=== PATIENT | male | born 1960 | race Asian ===

== ENCOUNTER 2020-09-18 23:37 | Inpatient (IN) | payer MEDICAID ==
[~2020-09-18] VITALS: Ht 181.6 cm; Wt 80.3 kg
[~2020-09-18 23:37] MED LIST: ACET-2247 PO; ALBU1.252 NEB; AMLO-258 PO; AUD NEB; PANT-31 PO; PRED-409 PO; PRED10 PO; PRED20 PO; QUET25TA PO
[2020-09-19 01:29] LABS: CALCIUM, TOTAL 9.1 mg/dL (8.8-10.5); CREATININE 1.4 mg/dL (0.60-1.30); POTASSIUM 4.3 mmol/L (3.5-5.1)
[2020-09-19 01:30] LABS: BASOPHILS % (AUTO) 1.4 % (0.0-2.0); EOSINOPHILS % (AUTO) 2.6 % (1.0-6.0); HEMATOCRIT 45.9 % (41-53); HEMOGLOBIN 14.7 g/dL (13.5-17.5); LYMPHOCYTES # (AUTO) 1.7 K/uL (1.0-4.8); LYMPHOCYTES % (AUTO) 19.2 % (22.0-44.0); MEAN CORPUSCULAR HEMOGLOBIN 27.1 pg (26.0-34.0); MEAN CORPUSCULAR VOLUME 85 fL (80-100); MONOCYTES # (AUTO) 0.8 K/uL (0.1-1.0); MONOCYTES % (AUTO) 8.8 % (2.0-9.0); NEUTROPHILS # (AUTO) 5.9 K/uL (1.8-7.7); PLATELET COUNT (AUTO) 202 K/uL (150-450); RED BLOOD CELL COUNT(AUTO) 5.42 MIL/uL (4.50-5.90); RED CELL DISTRIBUTION WIDTH 16.3 % (11.5-14.5)
[2020-09-19 01:35] LABS: INR 1.2 (0.9-1.1); PROTHROMBIN TIME 12.2 SEC (9.4-11.6)
[2020-09-19 01:41] LABS: APPEARANCE,URINE CLEAR (CLEAR); BILIRUBIN,URINE NEGATIVE (NEGATIVE); GLUCOSE, URINE (UA) NEGATIVE (NEGATIVE); KETONES,URINE NEGATIVE (NEGATIVE); LEUKOCYTE ESTERASE ,URINE TRACE (NEGATIVE); NITRATE,URINE NEGATIVE (NEGATIVE); OCCULT BLOOD,URINE LARGE (NEGATIVE); PH,URINE 5.5 (5.0-8.0); PROTEIN,URINE SEE CONFIRM (NEGATIVE)
[2020-09-19 01:54] LABS: ALBUMIN 3.7 g/dL (3.4-5.0); BILIRUBIN,TOTAL 0.9 mg/dL (0.1-1.0); TOTAL PROTEIN, SERUM 8.2 g/dL (6.4-8.2)
[2020-09-19 01:58] LABS: BACTERIA,URINE Few /HPF (None Seen); SULFOSALICYLIC ACID,URINE 3+ (Negative)
[2020-09-19 01:59] LABS: MUCUS,URINE Few LPF (None Seen)
[2020-09-19 02:30] LABS: COVID AG,FIA SOURCE NASOPHARYNGEAL
[2020-09-19] MEDS ORDERED: NITROGLYCERIN 2% (1 GM=INCH) PACKET TP ONE (03:15)
[2020-09-19] MEDS ORDERED: FUROSEMIDE 40 MG/4 ML VIAL IVP ONE (03:15)
[2020-09-19 04:54] LABS: D-DIMER 1.83 mg/L FEU (0.00-0.50)
[2020-09-19] MEDS ORDERED: CARVEDILOL 3.125 MG TABLET PO ONE (05:15)
[2020-09-19] MEDS: ATORVASTATIN CALCIUM 40 MG TABLET PO SCH ×2 (05:49→20:22)
[2020-09-19] MEDS ORDERED: MELATONIN 3 MG TABLET PO ONE (06:30)
[2020-09-19] MEDS: FUROSEMIDE 20 MG/2 ML VIAL IVP SCH ×2 (09:35→20:22)
[2020-09-19] MEDS ORDERED: ACETAMINOPHEN 325 MG TABLET PO PRN (14:30)
[2020-09-19] MEDS ORDERED: ONDANSETRON HCL 4 MG/2 ML VIAL IVP PRN (14:30)
[2020-09-19 15:29] VITALS: BP 142/91
[2020-09-19 20:01] VITALS: BP 122/79
[2020-09-19] MEDS: CARVEDILOL 12.5 MG TABLET PO SCH (20:22)
[2020-09-19] MEDS: HEPARIN SODIUM,PORCINE 5,000 UNITS/ML VIAL SQ SCH (20:22)
[2020-09-20 00:46] VITALS: BP 125/85
[2020-09-20 05:34] VITALS: BP 120/88
[2020-09-20 07:12] LABS: BASOPHILS % (AUTO) 0.6 % (0.0-2.0); EOSINOPHILS % (AUTO) 4.6 % (1.0-6.0); HEMATOCRIT 42.6 % (41-53); HEMOGLOBIN 13.8 g/dL (13.5-17.5); LYMPHOCYTES # (AUTO) 1.2 K/uL (1.0-4.8); LYMPHOCYTES % (AUTO) 14.8 % (22.0-44.0); MEAN CORPUSCULAR HEMOGLOBIN 27.4 pg (26.0-34.0); MEAN CORPUSCULAR HGB CONC 32.5 G/dL (31.0-37.0); MEAN CORPUSCULAR VOLUME 84 fL (80-100); MONOCYTES # (AUTO) 0.8 K/uL (0.1-1.0); MONOCYTES % (AUTO) 10.5 % (2.0-9.0); NEUTROPHILS # (AUTO) 5.5 K/uL (1.8-7.7); NEUTROPHILS % (AUTO) 69.5 % (40.0-70.0); PLATELET COUNT (AUTO) 189 K/uL (150-450); RED BLOOD CELL COUNT(AUTO) 5.06 MIL/uL (4.50-5.90); RED CELL DISTRIBUTION WIDTH 16.5 % (11.5-14.5)
[2020-09-20 07:37] VITALS: BP 135/88
[2020-09-20] MEDS: HEPARIN SODIUM,PORCINE 5,000 UNITS/ML VIAL SQ SCH ×2 (07:41→20:44)
[2020-09-20] MEDS: FUROSEMIDE 20 MG/2 ML VIAL IVP SCH ×2 (07:41→20:43)
[2020-09-20] MEDS: ASPIRIN 81 MG CHEWABLE TABLET PO SCH (07:41)
[2020-09-20] MEDS: CARVEDILOL 12.5 MG TABLET PO SCH (07:41)
[2020-09-20 07:42] LABS: CALCIUM, TOTAL 9.1 mg/dL (8.8-10.5); CREATININE 1.36 mg/dL (0.60-1.30); MAGNESIUM 1.9 mg/dL (1.80-2.40); POTASSIUM 3.9 mmol/L (3.5-5.1)
[2020-09-20] MEDS ORDERED: SODIUM CHLORIDE 0.9% 250 ML IV ONE (11:53)
[2020-09-20] MEDS: CefTRIAXone 1 GM/DEXTROSE 50 ML IV SCH (11:59)
[2020-09-20 16:07] VITALS: BP 130/97
[2020-09-20 19:42] VITALS: BP 136/106
[2020-09-20] MEDS: CARVEDILOL 25 MG TABLET PO SCH (20:43)
[2020-09-20] MEDS: ATORVASTATIN CALCIUM 40 MG TABLET PO SCH (20:43)
[2020-09-20 23:51] VITALS: BP 115/85
[2020-09-21 04:51] VITALS: BP 115/80
[2020-09-21 06:20] LABS: BASOPHILS % (AUTO) 1.1 % (0.0-2.0); HEMATOCRIT 42.2 % (41-53); HEMOGLOBIN 13.5 g/dL (13.5-17.5); LYMPHOCYTES # (AUTO) 1.5 K/uL (1.0-4.8); LYMPHOCYTES % (AUTO) 20.9 % (22.0-44.0); MEAN CORPUSCULAR HEMOGLOBIN 27.1 pg (26.0-34.0); MEAN CORPUSCULAR HGB CONC 32.1 G/dL (31.0-37.0); MEAN CORPUSCULAR VOLUME 85 fL (80-100); MONOCYTES # (AUTO) 0.8 K/uL (0.1-1.0); MONOCYTES % (AUTO) 11.5 % (2.0-9.0); NEUTROPHILS # (AUTO) 4.4 K/uL (1.8-7.7); NEUTROPHILS % (AUTO) 60.5 % (40.0-70.0); PLATELET COUNT (AUTO) 196 K/uL (150-450); RED BLOOD CELL COUNT(AUTO) 4.99 MIL/uL (4.50-5.90); RED CELL DISTRIBUTION WIDTH 17.1 % (11.5-14.5)
[2020-09-21 07:00] LABS: ALBUMIN 3.1 g/dL (3.4-5.0); BILIRUBIN,TOTAL 0.6 mg/dL (0.1-1.0); CALCIUM, TOTAL 9.2 mg/dL (8.8-10.5); CREATININE 1.36 mg/dL (0.60-1.30); POTASSIUM 4.1 mmol/L (3.5-5.1); TOTAL PROTEIN, SERUM 7.2 g/dL (6.4-8.2)
[2020-09-21 07:23] VITALS: BP 131/99
[2020-09-21] MEDS: CARVEDILOL 25 MG TABLET PO SCH (08:07)
[2020-09-21] MEDS: HEPARIN SODIUM,PORCINE 5,000 UNITS/ML VIAL SQ SCH (08:07)
[2020-09-21] MEDS: ASPIRIN 81 MG CHEWABLE TABLET PO SCH (08:07)
[2020-09-21] MEDS: FUROSEMIDE 20 MG/2 ML VIAL IVP SCH (08:07)
[2020-09-21 10:33] VITALS: BP 123/89
[2020-09-21] MEDS: CefTRIAXone 1 GM/DEXTROSE 50 ML IV SCH (11:23)
[2020-09-21] MEDS ORDERED: FURO40 PO (16:59)
[2020-09-21] MEDS ORDERED: ASPI-1444 PO (17:00)
[2020-09-21] MEDS ORDERED: ATOR40TA28 PO (17:01)
[2020-09-21] MEDS ORDERED: CARV25 PO (17:02)
[2020-09-21 20:25] VITALS: BP 125/82
== END 2020-09-21 19:00 | disposition home or self-care (01) | DRG 194 ==
LOC: EMS 23:38 → 5S 09-19 13:44
PROVIDERS: ADMIT Internal Medicine; ATTEND Internal Medicine
DX: I13.0 Hypertensive heart and chronic kidney disease with heart failure and stage 1 through stage 4 chronic kidney disease, or unspecified chronic kidney disease (principal); I42.8 Other cardiomyopathies; N18.30 Chronic kidney disease, stage 3 unspecified; I50.43 Acute on chronic combined systolic (congestive) and diastolic (congestive) heart failure; E78.5 Hyperlipidemia, unspecified; I25.10 Atherosclerotic heart disease of native coronary artery without angina pectoris; I34.0 Nonrheumatic mitral (valve) insufficiency; Z20.822 Contact with and (suspected) exposure to COVID-19; N39.0 Urinary tract infection, site not specified; F17.210 Nicotine dependence, cigarettes, uncomplicated; Z91.14 Patient's other noncompliance with medication regimen; Z91.19 Patient's noncompliance with other medical treatment and regimen; Z95.5 Presence of coronary angioplasty implant and graft
CPT/HCPCS: 71045; 80048; 80053; 81001; 81002; 82550; 83735; 83880; 84484; 85025; 85379; 85610; 85730; 87081; 87086; 93005; 93971; 99285; J0696; J1644; J1940; J7050; 36415-L1; 36415-TC; U0003